=== PATIENT | female | born 1990 | race American Indian/Alaskan Native ===

== ENCOUNTER 2021-09-03 16:16 | Emergency (ER) | payer SELFPAY ==
--- NOTE | 2021-09-03 17:05 | XRay Report ---
LEFT ANKLE 3 VIEW(S) INDICATION / CLINICAL INFORMATION: ankle injury COMPARISON: None available. FINDINGS: BONES / JOINT(S): No acute fracture or subluxation. No significant arthritis. SOFT TISSUES: Moderate soft tissue swelling about the ankle. ADDITIONAL FINDINGS: None. Signer Name: Ameya Daniel DO Signed: 09/03/2021 5:01 PM Workstation Name: [id number]
[2021-09-03] MEDS ORDERED: KETOROLAC 10 MG TAB PO ONE (18:39)
[2021-09-03] MEDS ORDERED: ACETAMINOPHEN W/CODEINE 300-30 MG TAB PO ONE (18:40)
--- NOTE | 2021-09-03 19:14 | XRay Report ---
LEFT TIBIA-FIBULA 2 VIEW(S) INDICATION / CLINICAL INFORMATION: injury, pain and swelling COMPARISON: None available. FINDINGS: BONES / JOINT(S): No acute fracture or subluxation. No significant arthritis. SOFT TISSUES: No significant abnormality. ADDITIONAL FINDINGS: None. IMPRESSION: 1. No acute findings. Signer Name: Zurdo Luz MD Signed: 09/03/2021 7:09 PM Workstation Name: [id number]
--- NOTE | 2021-09-03 19:15 | XRay Report ---
LEFT KNEE 3 VIEW(S) INDICATION / CLINICAL INFORMATION: injury COMPARISON: None available. FINDINGS: BONES / JOINT(S): No acute fracture or subluxation. No significant arthritis. SOFT TISSUES: No significant abnormality. ADDITIONAL FINDINGS: None. IMPRESSION: 1. No acute findings. Signer Name: Zurdo Luz MD Signed: 09/03/2021 7:11 PM Workstation Name: [id number]
--- NOTE | 2021-09-03 19:22 | Emergency Department Report ---
ED Lower Extremity HPI - General Chief Complaint: Extremity Injury, Lower Stated Complaint: HBP/ POSS SPRAIN KNEE/ANKLE/FOOT Time Seen by Provider: 09/03/21 18:17 Source: patient Mode of arrival: Ambulatory Limitations: No Limitations - History of Present Illness Initial Comments: 30 yo black female with no pmh presents to ed for evaluation of left ankle, leg, and knee pain. She states that on Tuesday, she slid into home plate while playing softball and injury her left ankle, leg, and knee. She states that she has been taking ibuprofen with some improvement. Complaint: knee injury, leg injury, ankle injury -: Sudden, days(s) (5) Injury: Leg: Left, Knee: Left, Ankle: Left Place: street/outdoors Severity: mild Severity scale (0 -10): 4 Improves With: NSAID Worsens With: weight bearing Context: other (hurt whilel playing softball) Associated Symptoms: swelling, ambulatory. denies: snap/pop sensation, numbness, tingling, unable to bear weight - Related Data Home Medications Medication Instructions Recorded Confirmed Last Taken Vit No.126/Iron/Folic 1 each PO DAILY 06/08/13 06/08/13 06/07/13 08:00 [Classic Tablet] 1 tab Previous Rx's Medication Instructions Recorded Last Taken Type Naproxen [Naprosyn] 500 mg PO BID #14 tab 09/03/21 Unknown Rx Allergies Allergy/AdvReac Type Severity Reaction Status Date / Time No Known Allergies Allergy Unverified 06/08/13 09:30 ED Review of Systems ROS: Stated complaint: HBP/ POSS SPRAIN KNEE/ANKLE/FOOT Other details as noted in HPI Comment: All other systems reviewed and negative Constitutional: denies: chills, fever Respiratory: denies: shortness of breath, SOB with exertion, SOB at rest, wheezing Cardiovascular: denies: chest pain, palpitations, dyspnea on exertion Gastrointestinal: denies: abdominal pain, nausea, vomiting Musculoskeletal: joint swelling. denies: back pain Neurological: denies: headache, weakness ED Past Medical Hx - Past Medical History Previous Medical History?: Yes Hx Hypertension: Yes Hx Diabetes: No Hx Deep Vein Thrombosis: No Hx Renal Disease: No Hx Sickle Cell Disease: No Hx Seizures: No Hx Asthma: No Hx HIV: No - Surgical History Past Surgical History?: No - Social History Smoking Status: Never Smoker - Medications Home Medications: Home Medications Medication Instructions Recorded Confirmed Last Taken Type Vit No.126/Iron/Folic 1 each PO DAILY 06/08/13 06/08/13 06/07/13 08:00 History [Classic Tablet] 1 tab Naproxen [Naprosyn] 500 mg PO BID #14 tab 09/03/21 Unknown Rx ED Physical Exam - General Limitations: No Limitations General appearance: alert, in no apparent distress - Head Head exam: Present: atraumatic, normocephalic - Eye Eye exam: Present: normal appearance. Absent: conjunctival injection - Neck Neck exam: Present: normal inspection, full ROM. Absent: tenderness, lymphadenopathy - Respiratory Respiratory exam: Absent: respiratory distress - Cardiovascular Cardiovascular Exam: Present: regular rate - GI/Abdominal GI/Abdominal exam: Absent: distended - Expanded Lower Extremity Exam Left Hip exam: Present: normal inspection Upper Leg exam: Present: normal inspection Knee exam: Present: tenderness, swelling. Absent: ecchymosis, dislocation, erythema Lower Leg exam: Present: tenderness, swelling. Absent: dislocation, erythema Ankle exam: Present: tenderness, swelling. Absent: full ROM, abrasion, ecchymosis, deformity, dislocation, erythema Foot/Toe exam: Present: tenderness, swelling. Absent: erythema Neuro vascular tendon exam: Present: no vascular compromise. Absent: pulse deficit, abnormal cap refill, motor deficit, sensory deficit, extremity cold to touch, pallor - Back Exam Back exam: Present: normal inspection - Neurological Exam Neurological exam: Present: alert, oriented X3 - Psychiatric Psychiatric exam: Present: normal affect, normal mood - Skin Skin exam: Present: warm, dry, intact, normal color ED Course Vital Signs 09/03/21 09/03/21 16:36 19:51 Temperature 97.3 F L Pulse Rate 80 77 Respiratory 16 18 Rate Blood Pressure 212/117 200/127 [Left] O2 Sat by Pulse 98 100 Oximetry - Orthopedic Splinting/Casting Injury #1 Side: left Lower Extremity Injury Location: ankle Lower Extremity Immobilizer: stirrup splint (velcro ankle stirrup splint) Other Orthopedic Equipment: crutches ED Lower Extremity MDM - Radiology Data Radiology results: report reviewed, image reviewed Left tib/fib xray: FINDINGS: BONES / JOINT(S): No acute fracture or subluxation. No significant arthritis. SOFT TISSUES: No significant abnormality. ADDITIONAL FINDINGS: None. IMPRESSION: 1. No acute findings. Left knee xray: FINDINGS: BONES / JOINT(S): No acute fracture or subluxation. No significant arthritis. SOFT TISSUES: No significant abnormality. ADDITIONAL FINDINGS: None. IMPRESSION: 1. No acute findings. Left ankle xray: FINDINGS: BONES / JOINT(S): No acute fracture or subluxation. No significant arthritis. SOFT TISSUES: Moderate soft tissue swelling about the ankle. ADDITIONAL FINDINGS: None. - Medical Decision Making 30 yo black female with no pmh presents to ed for evaluation of left ankle, leg, and knee pain. She states that on Tuesday, she slid into home plate while playing softball and injury her left ankle, leg, and knee. She states that she has been taking ibuprofen with some improvement. Left ankle, knee and tib/fib xray without any acute abnormalities noted. Left ankle placed in velcro ankle stirrup splint and given crutches. She will be d/nahed home with 7 day course of Naproxen. She is advised to take medications as prescribed and follow up with pcp or orthopedics if no improvement or worsening symptoms and return to ed for any concerning symptoms. She verbalizes understanding of and agreement with plan of care. Critical care attestation.: If time is entered above; I have spent that time in minutes in the direct care of this critically ill patient, excluding procedure time. ED Disposition Clinical Impression: Pain and swelling of left ankle, Left leg pain Left knee pain Qualifiers: Chronicity: acute Qualified Code(s): M25.562 - Pain in left knee Disposition: 01 HOME / SELF CARE / HOMELESS Is pt being admited?: No Does the pt Need Aspirin: No Condition: Stable Instructions: How to Use a Stirrup Ankle Brace, [id number], How to Use Cold Therapy, [id number], Musculoskeletal Pain, Acute Knee Pain, Adult, [id number] Additional Instructions: Take medications as prescribed. Follow-up with primary care provider or orthopedics if no improvement or worsening symptoms. Return to the emergency department as needed. Prescriptions: Naproxen [Naprosyn] 500 mg PO BID #14 tab Referrals: DANA JACKSON MD [Primary Care Provider] - 3-5 Days DEYANIRA STAFFORD MD [Staff Physician] - 3-5 Days Forms: Work/School Release Form(ED) Time of Disposition: 19:22
[2021-09-03 19:55] VITALS: BP 200/127
== END 2021-09-03 20:47 | disposition home or self-care (01) ==
LOC: ED 16:16
DX: M25.472 Effusion, left ankle (principal); M25.572 Pain in left ankle and joints of left foot; M25.562 Pain in left knee; I10 Essential (primary) hypertension; Z79.899 Other long term (current) drug therapy
CPT/HCPCS: 99283